=== PATIENT | male | born 1995 | race Caucasian/White ===

== ENCOUNTER 2017-07-05 14:56 | Emergency (ER) | payer OTHER ==
[2017-07-05] MEDS: LIDOCAINE WITH 8.4% SOD BICARB 3 ML DISP.SYRIN. INJ (15:35)
[2017-07-05] MEDS: DIPHTH,PERTUSS(ACELL),TET TOX 0.5 ML DISP.SYRIN. VAX IM (16:07)
== END 2017-07-05 16:20 | disposition home or self-care (01) ==
LOC: ER 14:56
DX: S61.412A Laceration without foreign body of left hand, initial encounter (principal); W26.8XXA Contact with other sharp object(s), not elsewhere classified, initial encounter; Y93.89 Activity, other specified; Y99.8 Other external cause status; Y92.89 Other specified places as the place of occurrence of the external cause
CPT/HCPCS: 12002; 90471; 90715; 99283-25

== ENCOUNTER 2017-07-12 10:19 | Emergency (ER) | payer OTHER | END 2017-07-12 10:41 | disposition home or self-care (01) | LOC: ER 10:19 | DX: S61.402D Unspecified open wound of left hand, subsequent encounter (principal); X58.XXXD Exposure to other specified factors, subsequent encounter | CPT/HCPCS: 99282 ==

== ENCOUNTER 2021-02-09 11:36 | Emergency (ER) | payer SELFPAY ==
[2017-07-12 10:35] VITALS: BP 115/70
[~2021-02-09] VITALS: Ht 175.3 cm; Wt 77.4 kg
[2021-02-09] MEDS ORDERED: AMOX1TAB61 PO (11:55)
[2021-02-09] MEDS ORDERED: TRAM50TA PO (11:55)
--- NOTE | 2021-02-09 11:56 | PHYS DOC ---
Past Medical History Past Medical History: No Pertinent History Past Surgical History: No Surgical History Smoking Status: Never Smoker Alcohol Use: None Drug Use: None General Adult EDM: Chief Complaint: ANIMAL BITE HPI: HPI: Patient is a 25 year old male who presents to the ED today to be evaluated for dog bites. Patient states he was walking his own dog when another stray dog attacked him. Patient states his tetanus is up-to-date. Review of Systems: Review of Systems: Constitutional: Denies fever or chills. [] Musculoskeletal: Denies back pain or joint pain. [] Integument: Reports dog bites Neurologic: Denies headache, focal weakness or sensory changes. [] Psychiatric: Denies depression or anxiety. [] Heart Score: C/O Chest Pain: N/A Risk Factors: Risk Factors: DM, Current or recent (<one month) smoker, HTN, HLP, family history of CAD, obesity. Risk Scores: Score 0 - 3: 2.5% MACE over next 6 weeks - Discharge Home Score 4 - 6: 20.3% MACE over next 6 weeks - Admit for Clinical Observation Score 7 - 10: 72.7% MACE over next 6 weeks - Early Invasive Strategies Allergies: Allergies: Allergies Coded Allergies Type Severity Reaction Last Updated Verified No Known Drug Allergies 07/05/17 No Physical Exam: PE: Constitutional: Well developed, well nourished, no acute distress, non-toxic appearance. []] Skin: Right forearm noted for 3 tiny puncture wounds consistent of a dog bite. Right thigh noted for multiple puncture wounds. Right silveira noted for multiple small puncture wounds consistent with dog bites. Similar puncture wounds noted on the left silveira. Back: No tenderness, no CVA tenderness. [] Extremities: No tenderness, no cyanosis, no clubbing, ROM intact, no edema. [] Neurologic: Alert and oriented X 3, normal motor function, normal sensory function, no focal deficits noted. [] Psychologic: Affect normal, judgement normal, mood normal. [] EKG: EKG: [] Radiology/Procedures: Radiology/Procedures: [] Course & Med Decision Making: Course & Med Decision Making Pertinent Labs and Imaging studies reviewed. (See chart for details) This a 25-year-old male patient presenting to the ED today with dog bites to bilateral upper and lower extremities. None of the bites needed stitches. Tetanus is up-to-date. Discharged on Augmentin. Wound care instructions and return precautions provided. Angel Disclaimer: Angel Disclaimer: This electronic medical record was generated, in whole or in part, using a voice recognition dictation system. Departure Departure Impression: Primary Impression: Dog bite Qualified Codes: W54.0XXA - Bitten by dog, initial encounter Disposition: HOME / SELF CARE / HOMELESS Condition: STABLE Referrals: NO PCP (PCP) follow up with your doctor in 1-2 weeks as needed Patient Instructions: Animal Bite, [id number] Additional Instructions: You were evaluated in the emergency room for dog bites. We encourage you to go home and take a really good shower using regular soap and water. Wash all the bite sites. Cover the wounds that are draining or bleeding. Take the prescribed antibiotics until completed. Monitor the wounds for any worsening condition including but not limited to increased redness, warmth, yellow drainage from the areas and return to the ED if they or see your primary care doctor. Scripts Neomy Sulf/Bacitrac Zn/Poly (NEOSPORIN OINTMENT) 28.3 Gm Oint...g. 1 GM TP BID, #28.3 GM Prov: ANGLE KNIGHT APRN 02/09/21 Tramadol Hcl (TRAMADOL HCL) 50 Mg Tablet 50 MG PO Q6HRS PRN for PAIN, #14 TAB Prov: ANGLE KNIGHT APRN 02/09/21 Amoxicillin/Potassium Clav (AUGMENTIN 875-125 TABLET) 1 Each Tablet 1 TAB PO BID for 10 Days, #20 TAB 0 Refills Prov: ANGLE KNIGHT APRN 02/09/21 ANGLE KNIGHT APRN Feb 09, 2021 11:56
[2021-02-09] MEDS ORDERED: NEOM28.32 TP (11:58)
== END 2021-02-09 12:05 | disposition home or self-care (01) ==
LOC: ER 11:36
DX: S71.131A Puncture wound without foreign body, right thigh, initial encounter (principal); S81.831A Puncture wound without foreign body, right lower leg, initial encounter; W54.0XXA Bitten by dog, initial encounter; Y93.89 Activity, other specified; Y92.89 Other specified places as the place of occurrence of the external cause; Y99.8 Other external cause status
CPT/HCPCS: 99283

== ENCOUNTER 2021-07-11 18:17 | Emergency (ER) | payer SELFPAY ==
[~2021-07-11] VITALS: Ht 175.3 cm; Wt 77.0 kg
[~2021-07-11 18:17] MED LIST: AMOX1TAB61 PO; NEOM28.32 TP; TRAM50TA PO
[2021-07-11 18:28] VITALS: BP 140/78
--- NOTE | 2021-07-11 18:43 | PHYS DOC ---
Past Medical History Past Medical History: No Pertinent History Additional Past Medical Histor: SEVER NOSE BLEEDS Past Surgical History: Other Additional Past Surgical Histo: CAUTERIZED NOSE BLEEDS Smoking Status: Never Smoker Alcohol Use: None Drug Use: None General Adult EDM: Chief Complaint: NOSEBLEED HPI: HPI: Patient is a 25 year old male presents with a chief complaint of nosebleed. Patient states he frequently has nosebleeds around weather changes. Patient's current nosebleed started around 1800 hrs. Patient states he has been applying pressure but has been unable to get the bleeding to stop. Patient states previous treatment included cauterization. Patient denies any headache dizziness. He is not on any blood thinning medications. Review of Systems: Review of Systems: Constitutional: Denies fever or chills. [] Eyes: Denies change in visual acuity. [] HENT: Denies nasal congestion or sore throat. [Positive epistaxis] Respiratory: Denies cough or shortness of breath. [] Cardiovascular: Denies chest pain or edema. [] GI: Denies abdominal pain, nausea, vomiting, bloody stools or diarrhea. [] : Denies dysuria. [] Musculoskeletal: Denies back pain or joint pain. [] Integument: Denies rash. [] Neurologic: Denies headache, focal weakness or sensory changes. [] Endocrine: Denies polyuria or polydipsia. [] Lymphatic: Denies swollen glands. [] Psychiatric: Denies depression or anxiety. [] Heart Score: C/O Chest Pain: N/A Risk Factors: Risk Factors: DM, Current or recent (<one month) smoker, HTN, HLP, family histo ry of CAD, obesity. Risk Scores: Score 0 - 3: 2.5% MACE over next 6 weeks - Discharge Home Score 4 - 6: 20.3% MACE over next 6 weeks - Admit for Clinical Observation Score 7 - 10: 72.7% MACE over next 6 weeks - Early Invasive Strategies Allergies: Allergies: Allergies Coded Allergies Type Severity Reaction Last Updated Verified No Known Drug Allergies 07/05/17 No Physical Exam: PE: Constitutional: Well developed, well nourished, no acute distress, non-toxic appearance. [] HENT: Normocephalic, atraumatic, bilateral external ears normal, oropharynx moist, no oral exudates, nose normal. [right nostril- no active bleeding visulaized. ] Eyes: PERRLA, EOMI, conjunctiva normal, no discharge. [] Neck: Normal range of motion, no tenderness, supple, no stridor. [] Cardiovascular:Heart rate regular rhythm, no murmur [] Lungs & Thorax: Bilateral breath sounds clear to auscultation [] Abdomen: Bowel sounds normal, soft, no tenderness, no masses, no pulsatile masses. [] Skin: Warm, dry, no erythema, no rash. [] Back: No tenderness, no CVA tenderness. [] Extremities: No tenderness, no cyanosis, no clubbing, ROM intact, no edema. [] Neurologic: Alert and oriented X 3, normal motor function, normal sensory function, no focal deficits noted. [] Psychologic: Affect normal, judgement normal, mood normal. [] Current Patient Data: Vital Signs: Vital Signs Date Time Temp Pulse Resp B/P (MAP) Pulse Ox O2 Delivery O2 Flow Rate FiO2 07/11/21 18:28 98.1 89 16 140/78 (98) 98 Room Air 98.1 EKG: EKG: [] Radiology/Procedures: Radiology/Procedures: [] Course & Med Decision Making: Course & Med Decision Making Pertinent Labs and Imaging studies reviewed. (See chart for details) [] After exam patient advised to hold pressure on nose for 10 minutes. 1915hrs Patient was evaluated --- clots blown out. Afrin sprayed in right nostril. No active bleeding visualized. Will observe. Re-evaluated @ 1939 Will discharge home. Angel Disclaimer: Angel Disclaimer: This electronic medical record was generated, in whole or in part, using a voice recognition dictation system. Departure Departure Impression: Primary Impression: Epistaxis Disposition: HOME / SELF CARE / HOMELESS Condition: STABLE Referrals: NO PCP (PCP) Patient Instructions: IAM George I DO Jul 11, 2021 18:43
[2021-07-11] MEDS ORDERED: OXYMETAZOLINE 0.05% NASAL SPRAY 30ML BOTTLE. NS ONE (19:00)
== END 2021-07-11 19:55 | disposition home or self-care (01) ==
LOC: ER 18:17
DX: R04.0 Epistaxis (principal)
CPT/HCPCS: 99282; 99283